=== PATIENT | female | born 1965 | race African-American/Black ===

== ENCOUNTER 2018-10-21 17:45 | Emergency (ER) | payer OTHER ==
[~2018-10-21] VITALS: Ht 165.1 cm; Wt 115.1 kg
[~2018-10-21 17:45] MED LIST: ABCC1C PO; ASPI-817 PO; HYDR12.58 PO; IBUP-1542 PO
[2018-10-21 17:46] VITALS: Ht 165.1 cm; Wt 115.1 kg
[2018-10-21 20:30] VITALS: BP 128/75; PULSE 78; RESP 16
== END 2018-10-21 20:30 | disposition home or self-care (01) ==
LOC: FTE 17:45
DX: G44.209 Tension-type headache, unspecified, not intractable (principal); I10 Essential (primary) hypertension; Z79.82 Long term (current) use of aspirin
CPT/HCPCS: 81003; 82962; Z7502; 99283

== ENCOUNTER 2018-11-15 07:07 | Day surgery (SDC) | payer OTHER ==
[~2018-11-15] VITALS: Ht 165.1 cm; Wt 113.6 kg
[~2018-11-15 07:07] MED LIST changes: +METOPROLOL PO
[2018-11-15 07:56] VITALS: Ht 165.1 cm; Wt 113.6 kg
[2018-11-15 08:01] VITALS: BP 130/79; PULSE 83; RESP 83
[2018-11-15] MEDS ORDERED: MIDAZOLAM 1 MG/ML 2 ML INJ ONE ×2 (08:57)
[2018-11-15] MEDS ORDERED: FENTAnyl 50 MCG/ML VIAL ONE (08:58)
[2018-11-15 09:13] VITALS: BP 124/68; PULSE 56; RESP 14
== END 2018-11-15 17:51 | disposition home or self-care (01) ==
LOC: GIL 07:07 → EEVIPCON 07:07 → GIL 07:15
PROVIDERS: ATTEND Internal Medicine Gastroenterology
DX: Z12.11 Encounter for screening for malignant neoplasm of colon (principal); K64.9 Unspecified hemorrhoids; I10 Essential (primary) hypertension
CPT/HCPCS: 45378; J2250; J3010; Z7610